=== PATIENT | male | born 1990 | race Caucasian/White ===

== ENCOUNTER 2018-01-30 20:40 | Emergency (ER) | payer MEDICAID, SELFPAY ==
[2018-01-30 20:43] VITALS: BP 124/79; BP 134/79; PULSE 106; PULSE 119; RESP 14; TEMP 36.6; O2SAT 95; O2SAT 99; BMI 22.1
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
[2018-01-30 21:00] VITALS: BP 118/80; PULSE 98; RESP 14; O2SAT 99
[2018-01-30] MEDS: Naproxen 500 MG Tablet PO (22:00)
[2018-01-30 22:09] VITALS: BP 118/74; PULSE 80; RESP 14; O2SAT 98
--- NOTE | 2018-01-30 22:55 | ED.RN ---
patient was noted out of bed at this time. Patient found behind the bed laying down to the floor with the power cord to the bed pressed against his neck. Patient never had cord wrapped around neck. Patient at this time acting unresponsive. Patient was lifted back into bed with assistance of nursing staff and fire management officer. Patient placed into bed and sternal rub preformed to wake patient. Patient awoke swinging, yelling, kicking, and cursing at staff. At this time patient placed into 4 point locked restraints for safety of staff and patient himself.
[2018-01-30] MEDS: Ziprasidone IM 20 MG/ML VIAL IM (22:57)
[2018-01-30 23:24] VITALS: BP 113/76; PULSE 104; RESP 14; O2SAT 98
[2018-01-30 23:52] LABS: Absolute Lymphocyte Count 2.77 X10^3/ul (0.83-4.51); Absolute Neutrophil Count 6.1 X10^3/uL (2.0-7.7); Basophil# 0.04 X10^3/uL; Basophil% 0.4 % (0-1); Eosinophil# 0.19 X10^3/uL; Hematocrit 42.1 % (40-54); Hemoglobin 15.2 g/dl (13.0-16.5); Lymphocyte # 2.77 X10^3/ul (4.0); Lymphocyte % 28.8 % (19-41); Mean Corp Hgb Conc 36.1 g/gl (32-36); Mean Corpuscular Hgb 32.3 pg (27.0-32.0); Mean Corpuscular Volume 89.6 fL (80-94); Mean Platelet Vol. 9.3 fl (6.2-12.0); Monocyte% 5.2 % (0-10); Neutrophil # 6.09 X10^3/uL (2.7-7.7); Neutrophil % 63.4 % (47-70); Platelet Count 291 K/mm3 (150-450); RBC Distribution Width CV 12.3 % (11.6-14.6); RBC Distribution Width SD 40.1 fl (35.1-43.9); White Blood Count 9.6 K/mm3 (4.4-11.0)
[2018-01-30 23:53] LABS: POSITIVE COUNT NO; POSITIVE DIFFERENTIAL NO; POSITIVE MORPHOLOGY NO
[2018-01-31] VITALS (8 sets, daily range): BP systolic 91–120; BP diastolic 57–81; PULSE 78–103; RESP 11–26; O2SAT 95–98
[2018-01-31 00:01] LABS: Anion Gap 11 (5-15); BUN 11 mg/dL (7-18); BUN/Creat Ratio 11.5 RATIO (10-20); Chloride 114 mmol/L (98-107); Creatinine, Serum 0.96 mg/dL (0.70-1.30); EST Glomerular Filtration Rate 100 mL/min (>60); Est Glom Filt Rate - Afr Amer 121 mL/min (>60); Estimated Creatinine Clearance 114.44 ml/min; Glucose 101 mg/dL (74-106); Potassium 3.7 mmol/L (3.5-5.1); Sodium Level 146 mmol/L (136-145)
[2018-01-31 00:10] LABS: Amphetamine Urine VISTA NEGATIVE (<1000 ng/mL); Barbiturate Urine VISTA NEGATIVE (< 200 ng/mL); Benzodiazepine Urine VISTA NEGATIVE (< 200 ng/mL); Cocaine Urine VISTA NEGATIVE (< 300 ng/mL); Ecstacy Urine VISTA NEGATIVE (< 500 ng/mL); Methadone Urine VISTA NEGATIVE (< 300 ng/mL); PCP Urine VISTA NEGATIVE (< 25 ng/mL); THC Urine VISTA NEGATIVE (< 50 ng/mL); Vista UDS pH Range 5
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
--- NOTE | 2018-01-31 04:20 | ED.RN ---
right wrist removed at this time
--- NOTE | 2018-01-31 05:34 | ED.RN ---
left ankle removed at this time
== END 2018-01-31 07:30 | disposition home or self-care (01) ==
PROVIDERS: Emergency Provider Emergency Medicine
DX: S51.811A Laceration without foreign body of right forearm, initial encounter (principal); W25.XXXA Contact with sharp glass, initial encounter; Y93.9 Activity, unspecified; Y92.9 Unspecified place or not applicable; Y99.9 Unspecified external cause status; R45.851 Suicidal ideations; F10.129 Alcohol abuse with intoxication, unspecified; Y90.7 Blood alcohol level of 200-239 mg/100 ml; Z78.1 Physical restraint status; Z72.0 Tobacco use
CPT/HCPCS: 12004; 29125; 73090; 73130; 80048; 80307; 80320; 85025; 96372; 99285; A4216; G0480; J3486